=== PATIENT | female | born 1970 | race Caucasian/White ===

== ENCOUNTER → 2018-02-13 | Day surgery (SDC) | payer OTHER ==
[2007-12-20 18:17] VITALS: BP 110/66
[~2018-02-13] MED LIST: CIPROFLOXACIN500 MG PO; CYCLOBENZAPRINE10 M1 PO; GUAIFENESIN-COD10 ML PO; MOTRIN 600 MG600 MG PO; PEPCID40 MG PO; PERCOCET 325 MG-5 MG PO; PERCOCET 325 MG1 TA2 PO; PROPRANOLOL HCL40 MG PO; TOPAMAX50 MG PO; VALIUM5 M1 PO; ZITHROMAX250 M2 PO; ZOFRAN ODT4 MG SL
--- NOTE | 2018-02-13 16:39 | Operative Report ---
Operative/Inv Procedure Report Surgery Date: 02/13/18 Name of Procedure: Right shoulder arthroscopy, extensive debridement, subacromial decompression, distal clavicle resection, subpectoral biceps tenodesis Pre-Operative Diagnosis: Right shoulder partial rotator cuff tear Post-Operative Diagnosis: Right shoulder partial rotator cuff tear, SLAP tear Estimated Blood Loss: scant Surgeon/Executive Advisor: Anyi EVANS,Seth Duckworth Anesthesia: laryngeal mask airway, block Complications: None Condition: Stable to PACU Operative Indication: This is a 47 female with long-standing right shoulder pain as failed conservative care. MRI showed a partial rotator cuff tear. Risks and benefits of the procedure were discussed with the patient at length. Risks include but are not limited to nerve damage, muscle damage, infection, blood loss, blood clots, pulmonary embolus, and even . The patient agreed to the above risks and elected to proceed with surgery. Operative/Procedure Note Note: The patient was taken to the operating room and placed in the lateral decubitus position with the operative side up after anesthesia was induced. The upper extremity was prepped and draped in the normal sterile fashion. A timeout was performed prior to incision. The site marking was visualized prior to incision. IV antibiotics were given prior to incision. After the upper extremity was prepped and draped a spinal needle was used to insufflate the shoulder joint with saline. An 11 blade was used to incise the skin for the posterior portal placement. The cannula was then placed. The camera was inserted. An anterior portal was established just proximal and lateral to the coracoid with a spinal needle and an 11 blade. The diagnostic arthroscopy was then performed which showed the above findings. A wand was used to perform a biceps tenotomy. A shaver as well as a wand were used to stabilize the SLAP tear. The shaver was then used to debride the undersurface of the supraspinatus and infraspinatus. Next the subacromial space was entered through the posterior portal. A lateral portal was established with a spinal needle and an 11 blade. A blunt probe was inserted through the lateral portal. Next the shaver was inserted and a subacromial bursectomy was performed. Any bleeding vessels were identified and cauterized. The shaver was used to debride any bursal tissue on the undersurface of the acromion and surrounding the humeral head. The coracoacromial ligament was taken down with a wand. Care was taken to protect the rotator cuff tissue and only take bursal tissue. A wand was then used to further take down the soft tissue on the undersurface of the acromion. A bur was then inserted and the acromioplasty was then begun starting at the anterolateral edge of the acromion. This was extended down to the level of the acromioclavicular joint. This was then tapered further posteriorly. A switching stick was brought through the anterior portal for localization at the acromioclavicular joint. Next the wand was then brought through the anterior portal and the soft tissue on the undersurface of the acromioclavicular joint was then taken down. The bur was then used to resect the distal clavicle taking care to protect the posterior and superior acromioclavicular ligaments. The distal clavicle was excised and the space between the distal clavicle and acromion was noted to be without any bony impingement. The wand was used to further debride the acromioclavicular joint of any soft tissue interposition. The ligaments were well protected. A 1/8 inch Hemovac drain was placed through the posterior portal. An incision was then made in the axillary fold. Blunt dissection was performed and the pectoralis major tendon was identified. A Hohmann retractor was inserted deep to this to expose the bicipital groove. The biceps tendon was then delivered from the wound and whipstitched starting at the musculotendinous junction. It extended proximally. The excess tendon was cut. The bicipital groove was then cleared off of any soft tissue. A guidewire was then drilled from an anterior to posterior direction in the groove. A 7 mm reamer was then used over the wire to drill the anterior cortex. A 7 x 10 mm Arthrex peek tenodesis screw was then inserted after the biceps tendon was delivered into the drill hole. The screw was then tightened down flush with the anterior humeral cortex. The sutures were then tied over the top. The excess suture was cut. The wound was copiously irrigated. The skin was closed with 2-0 vicryl suture in a simple interrupted fashion and a running subcuticular 4-0 Monocryl stitch. Dermabond was applied. The portal sites were closed with 3-0 nylon suture in a simple interrupted fashion. A dry sterile dressing was placed. A sling was applied. The patient was transferred to PACU in stable condition. Findings: SLAP tear extending from the posterior 11 o'clock position to the anterior 1:30 position. Anterior labrum intact. Posterior labrum intact. Partial thickness tearing of the supraspinatus tendon involving 20% of the footprint. Mild partial tearing of the infraspinatus. Subscapularis intact. Subacromial hook present. Acromioclavicular joint arthrosis present. No loose bodies noted. Extensive subacromial bursitis.
== END ==
LOC: STS 01:48
DX: M75.111 Incomplete rotator cuff tear or rupture of right shoulder, not specified as traumatic (principal); M19.011 Primary osteoarthritis, right shoulder
CPT/HCPCS: 81025; C1713; C9290; J0131; J0690; J2250